=== PATIENT | female | born 1960 | race Caucasian/White ===

== ENCOUNTER → 2021-07-29 | Outpatient (CLI) | payer MEDICARE | LOC: KOH-I 09:05 | DX: M51.16 Intervertebral disc disorders with radiculopathy, lumbar region (principal); M48.061 Spinal stenosis, lumbar region without neurogenic claudication; M48.07 Spinal stenosis, lumbosacral region | CPT/HCPCS: 72148 ==

== ENCOUNTER → 2021-10-01 | Outpatient (CLI) | payer MEDICARE ==
[~2021-10-01] MED LIST: LISINOPRIL5 MG PO; LO-DOSE ASPIRIN81 MG PO
[2021-10-01 08:55] LABS: HEMOGLOBIN 13.6 gm/dl (12.3-15.3); RED BLOOD COUNT 4.69 M/UL (4.00-5.10); WHITE BLOOD COUNT 10.2 K/UL (4.5-11.0)
[2021-10-01 09:16] LABS: BUN/CREATININE RATIO 25 (0-10)
== END ==
LOC: OPSV2 09-30 11:00 → EDSTATUS 07:30 → OPSV2 07:30
PROVIDERS: Orthopaedic Surgery
DX: Z01.818 Encounter for other preprocedural examination (principal); M54.12 Radiculopathy, cervical region
CPT/HCPCS: 36415; 71046; 80048; 81001; 85027; 85610; 85730; 87081